=== PATIENT | male | born 1945 | race Caucasian/White ===

== ENCOUNTER 2020-07-24 12:06 | Outpatient (NON) | payer MEDICARE, OTHER, SELFPAY ==
[2020-07-25 00:38] LABS: SARS-CoV-2 RNA PCR Negative
== END 2020-07-24 12:07 ==
PROVIDERS: PCP Family Medicine; Visit Provider Family Medicine
DX: Z20.828 Contact with and (suspected) exposure to other viral communicable diseases (principal)
CPT/HCPCS: 87635; C9803; U0003